=== PATIENT | female | born 1975 | race Caucasian/White ===

== ENCOUNTER 2020-05-01 16:20 | Emergency (ER) | payer OTHER ==
[~2020-05-01 16:20] MED LIST: ABILIFY10 MG PO; ASPIRIN EC81 MG PO; ATIVAN1 MG PO; BUMEX1 MG PO; CELEXA20 MG PO; CLARITIN10 MG PO; CLEOCIN300 MG PO; COMPRESSION TH1 EACH XX; DICLOFENAC SODI75 MG PO; FLEXERIL10 MG PO; HYDROCORTISONE30 G3 TOP; IBUPROFEN800 MG PO; IRON18 MG PO; IRON325 M1 PO; K-DUR20 MEQ PO; KEFLEX250 MG PO; LASIX20 MG PO; LASIX40 MG PO; LEVAQUIN500 MG PO; NEURONTIN100 MG PO; NEURONTIN400 MG PO; PHENERGAN25 M1 PO; SUBOXONE 12 MG1 EACH PO; SUBOXONE 8 MG-1 EACH PO; TRAMADOL HCL50 MG PO; VENTOLIN HFA IN18 GM INH; VISTARIL50 MG PO; WELLBUTRIN XL150 MG PO
[2020-05-01] MEDS ORDERED: NORCO 5-325 TA1 EACH PO (18:54)
== END 2020-05-01 19:10 | disposition home or self-care (01) ==
LOC: FER 16:20
DX: S22.32XA Fracture of one rib, left side, initial encounter for closed fracture (principal); J45.909 Unspecified asthma, uncomplicated; Z88.0 Allergy status to penicillin; Z88.5 Allergy status to narcotic agent; W01.198A Fall on same level from slipping, tripping and stumbling with subsequent striking against other object, initial encounter
CPT/HCPCS: 71101

== ENCOUNTER 2020-07-22 23:03 | Emergency (ER) | payer OTHER ==
[~2020-07-22 23:03] MED LIST changes: +NORCO 5-325 TA1 EACH PO
[2020-07-22 23:55] LABS: BASOPHIL 0.5 % (0-2); EOSINOPHIL 1.2 % (0-5); HCT 38.6 % (37.0-47.0); HGB 12.5 g/dl (12.5-16.0); LYMPHOCYTE 32.5 % (15-48); MCH 27.9 pg (25.0-31.0); MCHC 32.4 g/dL (32.0-36.0); MCV 86.2 fL (78.0-100.0); MONOCYTE 5.8 % (0-12); MPV 9.6 fL (6.0-9.5); NEUTROPHIL 59.7 % (41-80); NRBC 0; PLT 257 K/uL (150-400); RBC 4.48 M/uL (4.20-5.40); RDW 12.7 % (11.5-14.0); WBC 10.6 K/uL (4.0-10.5)
[2020-07-23 00:04] LABS: AMPHETAMINES NEGATIVE (NEGATIVE); BARBITURATES NEGATIVE (NEGATIVE); ECSTASY (MDMA) NEGATIVE (NEGATIVE); MARIJUANA (THC) NEGATIVE (NEGATIVE); METHADONE NEGATIVE (NEGATIVE); OPIATES NEGATIVE (NEGATIVE); OXYCODONE NEGATIVE (NEGATIVE)
[2020-07-23 00:12] LABS: ALBUMIN 3.7 g/dL (3.4-5.0); ALKALINE PHOSHATASE 96 U/L (46-116); ALT 23 U/L (14-59); AST 16 U/L (15-37); BILIRUBIN - TOTAL 0.2 mg/dL (0.2-1.0); BUN 15 mg/dL (7-18); BUN/CREAT RATIO (CALC) 12.9 RATIO; CHLORIDE 99 mmol/L (98-107); CO2 (BICARBONATE) 27 mmol/L (21-32); CREATININE 1.16 mg/dL (0.51-0.95); GLOBULIN (CALCULATION) 4.3 g/dL; GLUCOSE 131 mg/dL (74-106); POTASSIUM 3.5 mmol/L (3.5-5.1)
== END 2020-07-23 08:31 ==
LOC: FER 23:03
PROVIDERS: Emergency Medicine
DX: R45.851 Suicidal ideations (principal); Z20.822 Contact with and (suspected) exposure to COVID-19; Z88.0 Allergy status to penicillin; Z88.5 Allergy status to narcotic agent; Z88.8 Allergy status to other drugs, medicaments and biological substances
CPT/HCPCS: 36415; 80053; 80305; 85025; 99285; G0480; U0002

== ENCOUNTER 2020-10-28 11:19 | Emergency (ER) | payer OTHER ==
[2020-10-28] MEDS ORDERED: CLINDAMYCIN 15150 MG PO (13:30)
[2020-10-28] MEDS ORDERED: IBUPROFEN800 MG PO (13:30)
== END 2020-10-28 13:45 | disposition home or self-care (01) ==
LOC: FER 11:19
DX: K04.7 Periapical abscess without sinus (principal); F17.210 Nicotine dependence, cigarettes, uncomplicated
CPT/HCPCS: 99282; Q0163

== ENCOUNTER 2021-05-26 21:45 | Emergency (ER) | payer OTHER ==
[~2021-05-26 21:45] MED LIST changes: +CLINDAMYCIN 15150 MG PO
[2021-05-26 22:57] LABS: BILIRUBIN NEGATIVE (NEGATIVE); BLOOD NEGATIVE Ery/uL (NEGATIVE); CLARITY CLEAR (CLEAR); COLOR YELLOW (YELLOW); GLUCOSE (U) TRACE mg/dL (NORMAL); LEUKOCYTES 2+ Leu/uL (NEGATIVE); NITRITE POSITIVE (NEGATIVE); PROTEIN 1+ mg/dL (NEGATIVE)
[2021-05-26 23:02] LABS: BASOPHIL 0.6 % (0-2); EOSINOPHIL 2.2 % (0-5); HCT 39.7 % (37.0-47.0); HGB 12.9 g/dl (12.5-16.0); MCH 27.9 pg (25.0-31.0); MCHC 32.5 g/dL (32.0-36.0); MCV 85.9 fL (78.0-100.0); MONOCYTE 6.2 % (0-12); MPV 10.2 fL (6.0-9.5); NEUTROPHIL 50.8 % (41-80); NRBC 0; PLT 187 K/uL (150-400); RBC 4.62 M/uL (4.20-5.40); RDW 12.1 % (11.5-14.0); WBC 6.4 K/uL (4.0-10.5)
[2021-05-26 23:07] LABS: BACTERIA TRACE; URINARY RBC RARE
[2021-05-26 23:17] LABS: ALBUMIN 3.3 g/dL (3.4-5.0); BILIRUBIN - TOTAL 0.2 mg/dL (0.2-1.0); BUN/CREAT RATIO (CALC) 14.3 RATIO; CREATININE 0.98 mg/dL (0.51-0.95); POTASSIUM 3.6 mmol/L (3.5-5.1); TOTAL PROTEIN 7.3 g/dL (6.4-8.2)
[2021-05-27] MEDS ORDERED: ONDANSETRON ODT4 MG PO (00:12)
[2021-05-27] MEDS ORDERED: MACROBID100 MG PO (00:12)
[2021-05-27] MEDS ORDERED: PHENERGAN12.5 M1 PO (00:40)
== END 2021-05-27 00:47 | disposition home or self-care (01) ==
LOC: FER 21:45
PROVIDERS: Emergency Medicine
DX: N39.0 Urinary tract infection, site not specified (principal); J45.909 Unspecified asthma, uncomplicated; F17.200 Nicotine dependence, unspecified, uncomplicated
CPT/HCPCS: 36415; 80053; 81001; 85025; 87088; J0780; J1200; J1885; J7030

== ENCOUNTER 2021-06-06 12:18 | Emergency (ER) | payer OTHER ==
[~2021-06-06 12:18] MED LIST changes: +MACROBID100 MG PO; +ONDANSETRON ODT4 MG PO; +PHENERGAN12.5 M1 PO
[2021-06-06] MEDS ORDERED: PERMETHRIN CREA60 GM TOP (12:46)
[2021-06-06] MEDS ORDERED: BACTRIM DS TAB1 EACH PO (12:46)
[2021-06-06] MEDS ORDERED: CEPHALEXIN500 MG PO (12:51)
[2021-06-06] MEDS ORDERED: DIFLUCAN150 MG PO (12:51)
== END 2021-06-06 12:50 | disposition home or self-care (01) ==
LOC: FER 12:18
DX: L98.9 Disorder of the skin and subcutaneous tissue, unspecified (principal); B95.62 Methicillin resistant Staphylococcus aureus infection as the cause of diseases classified elsewhere; Z88.0 Allergy status to penicillin; Z88.5 Allergy status to narcotic agent
CPT/HCPCS: 99282

== ENCOUNTER 2021-07-10 19:37 | Emergency (ER) | payer OTHER ==
[~2021-07-10 19:37] MED LIST changes: +BACTRIM DS TAB1 EACH PO; +CEPHALEXIN500 MG PO; +DIFLUCAN150 MG PO; +PERMETHRIN CREA60 GM TOP
[2021-07-10 23:30] LABS: MARIJUANA (THC) NEGATIVE (NEGATIVE)
[2021-07-10 23:31] LABS: AMPHETAMINES NEGATIVE (NEGATIVE); BARBITURATES NEGATIVE (NEGATIVE); ECSTASY (MDMA) NEGATIVE (NEGATIVE); METHADONE NEGATIVE (NEGATIVE); OPIATES NEGATIVE (NEGATIVE); OXYCODONE NEGATIVE (NEGATIVE)
[2021-07-11 01:07] LABS: BASOPHIL 0.5 % (0-2); EOSINOPHIL 2.3 % (0-5); HCT 41.7 % (37.0-47.0); HGB 13.7 g/dl (12.5-16.0); LYMPHOCYTE 49.8 % (15-48); MCH 28.5 pg (25.0-31.0); MCHC 32.9 g/dL (32.0-36.0); MCV 86.7 fL (78.0-100.0); MONOCYTE 7.4 % (0-12); MPV 10.6 fL (6.0-9.5); NEUTROPHIL 39.8 % (41-80); NRBC 0; PLT 177 K/uL (150-400); RBC 4.81 M/uL (4.20-5.40); RDW 12.8 % (11.5-14.0); WBC 6.1 K/uL (4.0-10.5)
[2021-07-11 01:26] LABS: BUN/CREAT RATIO (CALC) 17.9 RATIO; CREATININE 0.78 mg/dL (0.51-0.95); POTASSIUM 3.7 mmol/L (3.5-5.1)
[2021-07-11] MEDS ORDERED: VIBRAMYCIN100 MG PO (01:57)
== END 2021-07-11 02:35 | disposition home or self-care (01) ==
LOC: FER 19:37
PROVIDERS: Internal Medicine
DX: T14.8XXA Other injury of unspecified body region, initial encounter (principal); L08.9 Local infection of the skin and subcutaneous tissue, unspecified; F15.10 Other stimulant abuse, uncomplicated; F17.210 Nicotine dependence, cigarettes, uncomplicated; Z88.0 Allergy status to penicillin; Z88.5 Allergy status to narcotic agent
CPT/HCPCS: 36415; 80048; 80305; 85025; 99283; J1100; J2550

== ENCOUNTER 2021-08-22 12:07 | Emergency (ER) | payer OTHER ==
[~2021-08-22 12:07] MED LIST changes: +VIBRAMYCIN100 MG PO
[2021-08-22] MEDS ORDERED: TOPIRAMATE25 MG PO (12:51)
[2021-08-22] MEDS ORDERED: BRIN10TA PO (12:51)
[2021-08-22] MEDS ORDERED: TRELEGY ELLIPT1 EACH INH (12:52)
[2021-08-22] MEDS ORDERED: BACITRACIN15 GM TOP (13:20)
[2021-08-22] MEDS ORDERED: MEDROL 4MG DOSEP4 MG PO (13:20)
== END 2021-08-22 13:25 | disposition home or self-care (01) ==
LOC: FER 12:07
DX: L23.9 Allergic contact dermatitis, unspecified cause (principal); J45.909 Unspecified asthma, uncomplicated; F17.200 Nicotine dependence, unspecified, uncomplicated; Z88.0 Allergy status to penicillin; Z88.8 Allergy status to other drugs, medicaments and biological substances; Z88.5 Allergy status to narcotic agent
CPT/HCPCS: 99282

== ENCOUNTER 2021-09-23 15:20 | Emergency (ER) | payer OTHER ==
[~2021-09-23 15:20] MED LIST changes: +BACITRACIN15 GM TOP; +BRIN10TA PO; +MEDROL 4MG DOSEP4 MG PO; +TOPIRAMATE25 MG PO; +TRELEGY ELLIPT1 EACH INH
[2021-09-23 17:26] LABS: CLARITY HAZY (CLEAR); COLOR ORANGE (YELLOW)
[2021-09-23 17:29] LABS: BACTERIA 1+; URINARY RBC RARE
[2021-09-23 17:43] LABS: BASOPHIL 0.5 % (0-2); EOSINOPHIL 2.2 % (0-5); HCT 32.6 % (37.0-47.0); HGB 10.4 g/dl (12.5-16.0); LYMPHOCYTE 36.4 % (15-48); MCH 27.7 pg (25.0-31.0); MCHC 31.9 g/dL (32.0-36.0); MCV 86.9 fL (78.0-100.0); MONOCYTE 12.5 % (0-12); MPV 10.7 fL (6.0-9.5); NEUTROPHIL 47.8 % (41-80); NRBC 0; RBC 3.75 M/uL (4.20-5.40); RDW 13.2 % (11.5-14.0); WBC 6.4 K/uL (4.0-10.5)
[2021-09-23 18:05] LABS: PLT 246 K/uL (150-400)
[2021-09-23 18:23] LABS: BILIRUBIN - TOTAL 0.3 mg/dL (0.2-1.0); BUN/CREAT RATIO (CALC) 14.7 RATIO; CREATININE 1.02 mg/dL (0.51-0.95); GLOBULIN (CALCULATION) 4.5 g/dL; POTASSIUM 3.7 mmol/L (3.5-5.1); TOTAL PROTEIN 7.5 g/dL (6.4-8.2)
[2021-09-23] MEDS ORDERED: BACTRIM DS TAB1 EACH PO (18:55)
[2021-09-23] MEDS ORDERED: KEFLEX250 MG PO (19:04)
== END 2021-09-23 19:18 | disposition home or self-care (01) ==
LOC: FER 15:20
PROVIDERS: Nurse Practitioner Family
DX: N39.0 Urinary tract infection, site not specified (principal); D64.9 Anemia, unspecified; R11.2 Nausea with vomiting, unspecified; J45.909 Unspecified asthma, uncomplicated; F17.210 Nicotine dependence, cigarettes, uncomplicated; Z88.0 Allergy status to penicillin; Z88.5 Allergy status to narcotic agent; Z88.8 Allergy status to other drugs, medicaments and biological substances
CPT/HCPCS: 36415; 80053; 81001; 82270; 83690; 85025; 87088; J1885; J7030